=== PATIENT | male | born 1995 | race Caucasian/White ===

== ENCOUNTER 2020-11-19 09:34 | Emergency (ER) | payer OTHER ==
[~2020-11-19] VITALS: Ht 180.3 cm; Wt 83.9 kg
== END 2020-11-19 10:42 | disposition home or self-care (01) ==
LOC: ER 09:34
DX: M25.512 Pain in left shoulder (principal)
CPT/HCPCS: 73030; 99283-25

== ENCOUNTER 2021-10-10 06:11 | Emergency (ER) | payer SELFPAY ==
[~2021-10-10] VITALS: Ht 182.9 cm; Wt 83.9 kg
[~2021-10-10 06:11] MED LIST: CYCL10 PO; IBU600 MG PO
[2021-10-10 08:16] LABS: Influenza A, PCR NEGATIVE (NEGATIVE); Influenza B, PCR NEGATIVE (NEGATIVE); Resp Syncytial Virus, PCR NEGATIVE (NEGATIVE); SARS-Cov-2 (COVID-19) PCR, MMC NEGATIVE (NEGATIVE)
== END 2021-10-10 07:58 | disposition home or self-care (01) ==
LOC: ER 06:11
PROVIDERS: Student in an Organized Health Care Education/Training Program
DX: J20.8 Acute bronchitis due to other specified organisms (principal); J06.9 Acute upper respiratory infection, unspecified; Z20.822 Contact with and (suspected) exposure to COVID-19; Z91.040 Latex allergy status
CPT/HCPCS: 0241U; 99283

== ENCOUNTER 2023-01-11 01:30 | Emergency (ER) | payer OTHER ==
[~2023-01-11] VITALS: Ht 177.8 cm; Wt 79.4 kg
[2023-01-11 04:38] VITALS: BP 110/60
== END 2023-01-11 03:15 | disposition home or self-care (01) ==
LOC: ER 01:30
DX: L02.414 Cutaneous abscess of left upper limb (principal); F17.290 Nicotine dependence, other tobacco product, uncomplicated; Z91.040 Latex allergy status
CPT/HCPCS: 10061; 99283-25

== ENCOUNTER 2025-01-29 19:29 | Emergency (ER) | payer OTHER ==
[~2025-01-29] VITALS: Ht 180.3 cm; Wt 93.0 kg
[2025-01-29 19:37] VITALS: BP 130/83
[2025-01-29] MEDS ORDERED: OxyCODONE HCL 5 MG TAB PO ONE (21:00)
[2025-01-29] MEDS ORDERED: RX Prepack 6 Tabs Oxycodone 5mg UD ONE (21:50)
[2025-01-29] MEDS ORDERED: Percocet 5-3251 EACH PO (21:53)
== END 2025-01-29 22:00 | disposition home or self-care (01) ==
LOC: ER 19:29
DX: S42.252A Displaced fracture of greater tuberosity of left humerus, initial encounter for closed fracture (principal); X58.XXXA Exposure to other specified factors, initial encounter; Y93.64 Activity, baseball; F17.290 Nicotine dependence, other tobacco product, uncomplicated; Z91.040 Latex allergy status
CPT/HCPCS: 73030; 99283-25; A9270